=== PATIENT | female | born 1980 | race Caucasian/White ===

== ENCOUNTER 2017-04-27 16:40 | Emergency (ER) | payer OTHER ==
[~2017-04-27] VITALS: Ht 167.6 cm; Wt 105.8 kg
[~2017-04-27 16:40] MED LIST: COLACE100 MG PO; ERYTHROMYC1 APPLICAT RIGHT EYE; HYCODAN SYRUP480 ML PO; LEVAQUIN750 MG PO; LEXAPRO10 MG PO; LORTAB 5-325 M1 EACH PO; NOHOMEMEDS; NORCO 5/3251 TABLET PO; OMEPRAZOLE20 MG PO; PERCOCET 5/31 TABLET PO; PREDNISONE20 MG PO; PROAIR HFA8.5 GM IH; TYLENOL EXTRA500 MG PO; XANAX0.5 MG PO
[2017-04-27 17:35] LABS: HEMATOCRIT 45.3 % (36.0-46.0); MCH 32.6 PG (29.0-34.0); MCHC 34.4 G/DL (30.0-36.0); MCV 94.6 FL (83-99); MEAN PLAT.VOLUME 9.1 uM^3 (9.5-12.4); PLATELET COUNT 306 K/uL (156-360); RBC DIS.WIDTH-CV 11.6 % (11.8-14.6); RBC DIS.WIDTH-SD 40.5 % (39-53); RED BLOOD COUNT 4.79 M/uL (3.80-5.20); WHITE BLOOD COUNT 5.9 K/uL (4.1-10.2)
[2017-04-27 17:43] LABS: CHLORIDE 108 mEq/L (99-109); SODIUM 142 mEq/L (136-147)
[2017-04-27 17:45] LABS: GLUCOSE 100 mg/dL (70-99)
[2017-04-27 17:46] LABS: ANION GAP 11 MEQ/L (2-14)
[2017-04-27 17:47] LABS: TOTAL BILIRUBIN 0.5 mg/dL (0.0-1.0)
[2017-04-27 17:48] LABS: ALKALINE PHOSPHATASE 67 IU/L (3-129)
[2017-04-27 17:49] LABS: GFR ESTIMATE (CALCULATED) > 59 mL/min/
[2017-04-27 17:50] LABS: UREA NITROGEN (BUN) 13 mg/dL (9-23)
[2017-04-27 17:52] LABS: LIPASE 56 U/L (1.0-51.0)
[2017-04-27 17:59] LABS: QUANTITATIVE HCG < 4.0 MIU/ML
[2017-04-27 18:24] LABS: ADD MIUA? YES; BILIRUBIN NEGATIVE; BLOOD NEGATIVE; GLUCOSE (STRIP) NEGATIVE; KETONES NEGATIVE; LEUKOCYTES NEGATIVE; NITRITE NEGATIVE; PROTEIN (STRIP) NEGATIVE; SPECIFIC GRAVITY 1.018 (1.000-1.030); UROBILINOGEN 0.2 MG/DL (0.2-1.0)
[2017-04-27 18:28] LABS: COLOR DK YELLOW ((YELLOW))
[2017-04-27 18:34] LABS: BACTERIA RARE /HPF; EPITHELIAL CELLS RARE /HPF; MUCUS NONE SEEN /LPF; RED BLOOD CELLS 0-5 /HPF (0-5); WHITE BLOOD CELLS 0-5 /HPF (0-5)
[2017-04-27] MEDS ORDERED: BENTYL10 MG PO (18:40)
[2017-04-27] MEDS ORDERED: ZOFRAN ODT4 MG PO (18:40)
[2017-04-27 19:04] VITALS: BP 134/76
== END 2017-04-27 19:05 | disposition home or self-care (01) ==
LOC: EME 16:40
PROVIDERS: Nurse Practitioner Family
DX: R10.30 Lower abdominal pain, unspecified (principal); R11.0 Nausea; Z85.41 Personal history of malignant neoplasm of cervix uteri; Z90.710 Acquired absence of both cervix and uterus; F17.200 Nicotine dependence, unspecified, uncomplicated; Z88.6 Allergy status to analgesic agent
CPT/HCPCS: 74177; 80053; 81003; 83690; 84702; 85027; 99281; 99285; J2405; J3010; J7030

== ENCOUNTER → 2017-08-31 13:21 | Emergency (ER) | payer OTHER ==
[~2017-08-31] VITALS: Ht 167.6 cm; Wt 103.2 kg
[~2017-08-31 13:21] MED LIST changes: +BENTYL10 MG PO; +ZOFRAN ODT4 MG PO
[2017-08-31 13:44] VITALS: BP 156/94
== END | disposition left against medical advice (07) ==
LOC: EME 13:21
DX: M54.9 Dorsalgia, unspecified (principal); Z53.21 Procedure and treatment not carried out due to patient leaving prior to being seen by health care provider

== ENCOUNTER 2018-04-10 10:49 | Emergency (ER) | payer SELFPAY ==
[~2018-04-10] VITALS: Ht 167.6 cm; Wt 100.7 kg
[2018-04-10 11:33] LABS: BASOPHIL (%) 0.8 % (0-1); BASOPHIL COUNT 0.1 K/uL (0-0.1); EOSINOPHIL (%) 1.3 % (0-5); EOSINOPHIL COUNT 0.1 K/uL (0-0.3); HEMATOCRIT 44.6 % (36.0-46.0); HEMOGLOBIN 16.1 G/DL (11.9-15.5); IMMATURE GRANULOCYTE (%) 0.1 % (0.0-0.7); LYMPHOCYTE (%) 40.2 % (15-42); LYMPHOCYTE COUNT 3.4 K/uL (1.0-2.8); MCH 33.8 PG (29.0-34.0); MCHC 36.1 G/DL (30.0-36.0); MCV 93.7 FL (83-99); MONOCYTE (%) 7.4 % (3-12); MONOCYTE COUNT 0.6 K/uL (0-0.8); NEUTROPHIL (%) 50.2 % (45-76); NEUTROPHIL COUNT 4.2 K/uL (1.8-6.4); PLATELET COUNT 324 K/uL (156-360); RBC DIS.WIDTH-CV 11.6 % (11.8-14.6); RBC DIS.WIDTH-SD 40.1 % (39-53); RED BLOOD COUNT 4.76 M/uL (3.80-5.20); WHITE BLOOD COUNT 8.4 K/uL (4.1-10.2)
[2018-04-10 11:40] LABS: INTER. NORMALIZED RATIO 0.9
[2018-04-10 11:42] LABS: PTT 28.4 SEC (25-37)
[2018-04-10 11:44] LABS: CHLORIDE 105 mEq/L (99-109); POTASSIUM 3.4 mEq/L (3.7-5.4); SODIUM 141 mEq/L (136-147)
[2018-04-10 11:46] LABS: GLUCOSE 106 mg/dL (70-99)
[2018-04-10 11:49] LABS: SERUM ETHYL ALCOHOL 314 mg/dL
[2018-04-10 11:50] LABS: CREATININE 0.7 mg/dL (0.6-1.3); GFR ESTIMATE (CALCULATED) > 59 mL/min/
[2018-04-10 11:51] LABS: UREA NITROGEN (BUN) 12 mg/dL (9-23)
[2018-04-10 11:55] LABS: TROP-I INTERPRETATION NEGATIVE; TROPONIN-I < 0.01 ng/mL (0.0-0.30)
[2018-04-10 12:00] VITALS: BP 103/75
== END 2018-04-10 12:00 | disposition left against medical advice (07) ==
LOC: EME 10:49
PROVIDERS: Emergency Medicine
DX: F41.9 Anxiety disorder, unspecified (principal); Z53.21 Procedure and treatment not carried out due to patient leaving prior to being seen by health care provider
CPT/HCPCS: 71045; 80048; 84484; 85025; 85610; 85730; 93005; G0480